=== PATIENT | male | born 1950 | race Caucasian/White ===

== ENCOUNTER 2017-05-10 09:52 | Outpatient (CLI) | payer MEDICARE, BC ==
[~2017-05-10 09:52] MED LIST: Iopamidol 370 76% 100 ML VIAL ONE
--- NOTE | 2017-05-10 15:23 | CT ---
CT ABDOMEN WITH CONTRAST CT PELVIS WITH CONTRAST: DATE: 05/10/17 HISTORY: 66-year-old male with Abdominal lymphoma, please compare with last study of July 2015. 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 787.01, nausea with vomiting. COMPARISON: 09/06/16 and 03/01/16. TECHNIQUE: IV injection of iodinated contrast media: 70 mL Isovue 370. Oral contrast media: Readi-Cat. FINDINGS: Again noted is the diffuse retroperitoneal, soft tissue attenuation material with shaggy borders, env eloping the bilateral renal arteries and renal veins, much of the abdominal aorta, and the inferior v tanisha cava, extending from the level of the celiac axis to the proximal portions of bilateral common il iac vessels, just distal to the aortic bifurcation. The oblique transverse and anteroposterior dimens ions measured at the level of the renal vessels, are approximately 9 x 3.5 cm (it is not possible to be precise because of the shaggy, ill-defined borders). When the same cursor placement is used on the previous CT images of 09/06/16 and 03/01/16 are used, the mass has not changed. There are at least two cysts in the left kidney. There is no hydronephrosis bilaterally. The pancreas , adrenals, spleen, liver, appendix, and urinary bladder are normal. There is no evidence of new lymp hadenopathy. There is no free fluid within the abdominal cavity or pelvic cavity. No signs of acute c olonic diverticulitis. Colonic interposition anterior to the right lobe of the liver. Multiple divert icula in the ascending colon, an atypical location. Calcified right hilar lymph node. Calcified pulm onary granuloma in right lower lobe. No infiltrate or pleural effusion. No interval change overall. IMPRESSION: 1. Extensively matted soft tissue density material throughout the retroperitoneum, encasing major bl ood vessels, represents sequelae of previously treated lymphoma. 2. No interval change compared to 09/06/16 and 03/01/16. No evidence of active lymphoma. JNR POS: [facility]
== END 2017-05-10 09:53 | disposition home or self-care (01) ==
LOC: CT 09:52
PROVIDERS: ATTEND Internal Medicine Medical Oncology
DX: C85.88 Other specified types of non-Hodgkin lymphoma, lymph nodes of multiple sites (principal); D50.9 Iron deficiency anemia, unspecified; R11.2 Nausea with vomiting, unspecified; Z23 Encounter for immunization
CPT/HCPCS: 74177

== ENCOUNTER 2018-02-23 06:36 | Outpatient (CLI) | payer MEDICARE, BC | END 2018-02-23 06:37 | disposition home or self-care (01) | LOC: BICULT 06:36 | PROVIDERS: ATTEND Internal Medicine Medical Oncology | DX: C85.90 Non-Hodgkin lymphoma, unspecified, unspecified site (principal); N28.1 Cyst of kidney, acquired; I71.4 Abdominal aortic aneurysm, without rupture; R59.0 Localized enlarged lymph nodes | CPT/HCPCS: 76700; 76856 ==

== ENCOUNTER 2018-07-25 07:22 | Outpatient (CLI) | payer MEDICARE, BC ==
--- NOTE | 2018-07-25 08:54 | CT ---
CT ABDOMEN AND PELVIS WITH IV CONTRAST: 07/25/2018 PROVIDED CLINICAL HISTORY: Abdominal pain. History of lymphoma. COMPARISON: 05/10/2017 FINDINGS: The visualized lung bases are free of significant opacity. The liver, spleen, pancreas, kidneys, and adrenal glands demonstrate a stable CT appearance. Extensive, confluent, abnormal soft tissue density throughout the retroperitoneum is redemonstrated. There has been no significant interval change, with respect to the prior examination. There is no bowel dilatation, inflammatory fat stranding, or lymph node enlargement apparent. Vascular calcifications are noted involving the abdominal aorta. The osseous structures demonstrate no concerning osteoblastic or osteolytic lesions. IMPRESSION: Stable examination. POS: [facility]
[2018-07-25] MEDS ORDERED: ISOVUE-370 76%-LOCM 1 ML ONE (09:27)
== END 2018-07-25 07:23 | disposition home or self-care (01) ==
LOC: BICCT 07:22
PROVIDERS: ATTEND Internal Medicine Nephrology
DX: N18.2 Chronic kidney disease, stage 2 (mild) (principal); N40.1 Benign prostatic hyperplasia with lower urinary tract symptoms; C85.93 Non-Hodgkin lymphoma, unspecified, intra-abdominal lymph nodes; N13.9 Obstructive and reflux uropathy, unspecified; E78.5 Hyperlipidemia, unspecified; M10.9 Gout, unspecified; I25.10 Atherosclerotic heart disease of native coronary artery without angina pectoris; M19.90 Unspecified osteoarthritis, unspecified site; K21.9 Gastro-esophageal reflux disease without esophagitis
CPT/HCPCS: 74177; 82565; Q9966

== ENCOUNTER 2019-04-26 07:49 | Outpatient (CLI) | payer MEDICARE, BC ==
--- NOTE | 2019-04-26 10:54 | CT ---
CT ABDOMEN AND PELVIS WITH IV CONTRAST: Date: 04/26/19 HISTORY: Retroperitoneal mass, lymphoma. COMPARISON: 07/25/18 and 05/10/17. FINDINGS: Calcified granuloma are seen at the right lung base with calcified right hilar lymph nodes again pres ent. Vascular calcifications are again seen in the coronary arteries, as well as involving the abdominal a angel and iliac arteries. There is persistent extensive and confluent abnormal soft tissue density seen throughout the retroper itoneum surrounding the abdominal aorta and IVC, as well as portions of the renal veins, greater on t he right. There has been no significant interval change with respect to the most recent study on 07/14 08/01. The liver, spleen, pancreas, bilateral adrenal glands, and opacified small bowel demonstrate a normal CT appearance. There is colonic diverticulosis present. The urinary bladder is decompressed, but otherwise grossly demonstrates a normal CT appearance. There is mild prominence of the left gonadal vein compared to the right with serpiginous enhancing ve ssels seen in the region of the left inguinal canal. This is a stable finding compared to prior exams . Degenerative changes are again seen in the spine, greatest at lumbosacral junction. No concerning scl erotic or lytic osseous lesions are identified. There are stable hypodense left renal lesions again seen, likely related to renal cysts. IMPRESSION: Overall stable CT scan of the abdomen and pelvis with the extensive retroperitoneal soft tissue densi ty unchanged compared to prior studies. POS: [facility]
[2019-04-26] MEDS ORDERED: Iopamidol-370 76% 500 ML 1 ML ONE (15:06)
== END 2019-04-26 07:50 | disposition home or self-care (01) ==
LOC: BICCT 07:49
PROVIDERS: ATTEND Internal Medicine Medical Oncology
DX: K66.8 Other specified disorders of peritoneum (principal)
CPT/HCPCS: 74177; Q9967

== ENCOUNTER 2020-09-17 07:56 | Outpatient (CLI) | payer MEDICARE, BC ==
[2020-09-17] MEDS ORDERED: Iopamidol-370 76% 500 ML 1 ML ONE (12:06)
== END 2020-09-17 07:57 | disposition home or self-care (01) ==
LOC: BICCT 07:56
PROVIDERS: ATTEND Internal Medicine Medical Oncology
DX: C82.38 Follicular lymphoma grade IIIa, lymph nodes of multiple sites (principal); N13.5 Crossing vessel and stricture of ureter without hydronephrosis
CPT/HCPCS: 74177; 82565; Q9967

== ENCOUNTER 2021-03-25 06:56 | Outpatient (CLI) | payer MEDICARE, BC | END 2021-03-25 06:57 | disposition home or self-care (01) | LOC: BICMRI 06:56 | PROVIDERS: ATTEND Chiropractor | DX: M47.26 Other spondylosis with radiculopathy, lumbar region (principal); M50.122 Cervical disc disorder at C5-C6 level with radiculopathy; M99.03 Segmental and somatic dysfunction of lumbar region | CPT/HCPCS: 72148 ==

== ENCOUNTER 2021-07-10 08:18 | Outpatient (CLI) | payer MEDICARE, BC | END 2021-07-10 08:19 | disposition home or self-care (01) | LOC: TBSIIMAG 08:18 | PROVIDERS: ATTEND Neurological Surgery | DX: R29.898 Other symptoms and signs involving the musculoskeletal system (principal); M50.021 Cervical disc disorder at C4-C5 level with myelopathy; M47.12 Other spondylosis with myelopathy, cervical region | CPT/HCPCS: 72141; 72146 ==

== ENCOUNTER 2021-07-21 13:16 | Outpatient (CLI) | payer MEDICARE, BC ==
[2021-07-21 14:30] LABS: Hemoglobin 11.1 g/dL (13.5-17.5); Mean Corpuscular HGB CONC 34.7 g/dL (32.0-36.0); Mean Corpuscular Hemoglobin 31.2 pg (27.0-33.0); Mean Corpuscular Volume 89.9 fl (81.2-95.1); Mean Platelet Volume 9.7 fl (7.4-10.4); Platelet Count 378 10x3/uL (150-450); RBC Distribution Width 12.2 % (11.5-14.5); Red Blood Cell (RBC) Count 3.56 10x6/uL (4.32-5.72); White Blood Cell (WBC) Count 8.8 10x3/uL (3.5-10.5)
[2021-07-21 14:56] LABS: Anion Gap 16 mmol/L (10-20); BUN (Urea Nitrogen) 14 mg/dL (8.4-25.7); Calc. Creatinine Clearance 0 mL/min (70-130); Calcium 9.7 mg/dL (7.8-10.44); Carbon Dioxide 23 mmol/L (23-31); Chloride 94 mmol/L (98-107); Glucose 125 mg/dL (83-110); Potassium 4.1 mmol/L (3.5-5.1); Sodium 129 mmol/L (136-145)
[2021-07-22 00:03] LABS: SARS-CoV-2 PCR by NAA Not Detected (NotDetected)
== END 2021-07-21 13:17 | disposition home or self-care (01) ==
LOC: LABBT 13:16
PROVIDERS: ATTEND Neurological Surgery
DX: Z01.818 Encounter for other preprocedural examination (principal); G95.9 Disease of spinal cord, unspecified; Z20.822 Contact with and (suspected) exposure to COVID-19
CPT/HCPCS: 80048; 85027; 93005; U0003; U0005; 93010

== ENCOUNTER 2021-07-24 06:39 | Day surgery (SDC) | payer MEDICARE, BC ==
[2021-07-21 13:43] VITALS: BMI 24.3
[2021-07-24] MEDS ORDERED: ceFAZolin Sodium (SDC) 2 GM/100 ML BAG ONE (10:02)
[2021-07-24] MEDS ORDERED: Dexmedetomidine 200 MCG/2 ML VIAL ONE (10:05)
[2021-07-24] MEDS ORDERED: Fentanyl 250 MCG/5 ML VIAL ONE ×2 (10:05→11:47)
[2021-07-24] MEDS ORDERED: Glycopyrrolate 0.2 MG/ML 5 ML SYRINGE ONE (10:21)
[2021-07-24] MEDS ORDERED: Lidocaine 1% PF 5 ML VIAL ONE (10:21)
[2021-07-24] MEDS ORDERED: Ondansetron PF 4 MG/2 ML Vial ONE (10:21)
[2021-07-24] MEDS ORDERED: ePHEDrine 50 MG/ML VIAL ONE (10:21)
[2021-07-24] MEDS ORDERED: Rocuronium Bromide 10 MG/ML (10ML VIAL) ONE (10:21)
[2021-07-24] MEDS ORDERED: PROPOFOL 200 MG/20 ML VIAL ONE (10:21)
[2021-07-24] MEDS ORDERED: Dexamethasone 20 MG/5 ML VIAL ONE (10:21)
[2021-07-24] MEDS ORDERED: SUGAMMADEX SODIUM 200 MG/2 ML VIAL ONE (11:25)
[2021-07-24] MEDS ORDERED: Tamsulosin HCl 0.4 MG CAP ONE (12:14)
== END 2021-07-24 15:10 | disposition home or self-care (01) ==
LOC: SDC 06:39
PROVIDERS: ATTEND Neurological Surgery
PROC: 0RG10A0 Fusion of Cervical Vertebral Joint with Interbody Fusion Device, Anterior Approach, Anterior Column, Open Approach (ICD-10-PCS; principal; 2021-07-24)
DX: M47.12 Other spondylosis with myelopathy, cervical region (principal); M48.02 Spinal stenosis, cervical region; M48.062 Spinal stenosis, lumbar region with neurogenic claudication; I10 Essential (primary) hypertension; E78.5 Hyperlipidemia, unspecified; M10.9 Gout, unspecified; N40.1 Benign prostatic hyperplasia with lower urinary tract symptoms; R33.8 Other retention of urine; Z79.82 Long term (current) use of aspirin; Z79.899 Other long term (current) drug therapy
CPT/HCPCS: 20930; 20936; 22551; 22845; 22853; 76000; C1713; C1776 ×2; J0690; J1100; J2405; J2704; J3010; J3490

== ENCOUNTER 2021-10-02 10:06 | Outpatient (CLI) | payer MEDICARE, BC ==
[2021-10-02 11:14] LABS: Hemoglobin 11.8 g/dL (13.5-17.5); Mean Corpuscular HGB CONC 33.7 g/dL (32.0-36.0); Mean Corpuscular Hemoglobin 30.8 pg (27.0-33.0); Mean Corpuscular Volume 91.4 fl (81.2-95.1); Mean Platelet Volume 9.8 fl (7.4-10.4); Platelet Count 309 10x3/uL (150-450); RBC Distribution Width 13.9 % (11.5-14.5); Red Blood Cell (RBC) Count 3.83 10x6/uL (4.32-5.72); White Blood Cell (WBC) Count 6.9 10x3/uL (3.5-10.5)
[2021-10-02 20:01] LABS: SARS-CoV-2 PCR by NAA Not Detected (NotDetected)
== END 2021-10-02 10:07 | disposition home or self-care (01) ==
LOC: LABBT 10:06
PROVIDERS: ATTEND Neurological Surgery
DX: Z01.812 Encounter for preprocedural laboratory examination (principal); M54.16 Radiculopathy, lumbar region; Z20.822 Contact with and (suspected) exposure to COVID-19
CPT/HCPCS: 85027; U0003; U0005

== ENCOUNTER 2021-10-07 05:25 | Day surgery (SDC) | payer MEDICARE, BC ==
[2021-10-05 10:25] VITALS: BMI 24.3
[2021-10-07] MEDS ORDERED: Bupivacaine PF 0.5% 30 ML VIAL ONE (06:10)
[2021-10-07] MEDS ORDERED: Thrombin 5000 UNITS/5 ML VIAL ONE (06:10)
[2021-10-07] MEDS ORDERED: EPINEPHrine 1 MG/ML AMP ONE (06:10)
[2021-10-07] MEDS ORDERED: Fentanyl 250 MCG/5 ML VIAL ONE (06:36)
[2021-10-07] MEDS ORDERED: ceFAZolin (BATCH) 2 GM/100 ML BAG ONE ×2 (07:00→10:53)
[2021-10-07] MEDS ORDERED: ePHEDrine 50 MG/ML VIAL ONE (07:12)
[2021-10-07] MEDS ORDERED: Rocuronium Bromide 10 MG/ML (10ML VIAL) ONE (07:12)
[2021-10-07] MEDS ORDERED: Dexamethasone 20 MG/5 ML VIAL ONE (07:12)
[2021-10-07] MEDS ORDERED: Ondansetron PF 4 MG/2 ML Vial ONE (07:12)
[2021-10-07] MEDS ORDERED: Lidocaine 1% PF 5 ML VIAL ONE (07:12)
[2021-10-07] MEDS ORDERED: PROPOFOL 200 MG/20 ML VIAL ONE (07:12)
[2021-10-07] MEDS ORDERED: SUGAMMADEX SODIUM 200 MG/2 ML VIAL ONE (08:07)
== END 2021-10-07 11:22 | disposition home or self-care (01) ==
LOC: SDC 05:25
PROVIDERS: ATTEND Neurological Surgery
PROC: 0SB20ZZ Excision of Lumbar Vertebral Disc, Open Approach (ICD-10-PCS; principal; 2021-10-07)
PROC: 01NB0ZZ Release Lumbar Nerve, Open Approach (ICD-10-PCS; 2021-10-07)
DX: M51.16 Intervertebral disc disorders with radiculopathy, lumbar region (principal); I10 Essential (primary) hypertension; E78.5 Hyperlipidemia, unspecified; M10.9 Gout, unspecified; N40.0 Benign prostatic hyperplasia without lower urinary tract symptoms; Z79.82 Long term (current) use of aspirin; Z79.899 Other long term (current) drug therapy; Z98.1 Arthrodesis status
CPT/HCPCS: 76000; J0171; J0690; J1100; J2405; J2704; J3010; J3490; S0020

== ENCOUNTER 2021-11-25 09:03 | Outpatient (CLI) | payer MEDICARE, BC | END 2021-11-25 09:04 | disposition home or self-care (01) | LOC: TBSIIMAG 09:03 | PROVIDERS: ATTEND Neurological Surgery | DX: M47.26 Other spondylosis with radiculopathy, lumbar region (principal); M47.815 Spondylosis without myelopathy or radiculopathy, thoracolumbar region; M47.817 Spondylosis without myelopathy or radiculopathy, lumbosacral region; M48.061 Spinal stenosis, lumbar region without neurogenic claudication | CPT/HCPCS: 72158 ==

== ENCOUNTER 2021-12-29 07:59 | Outpatient (CLI) | payer MEDICARE, BC | END 2021-12-29 08:00 | disposition home or self-care (01) | LOC: LABBT 07:59 | PROVIDERS: ATTEND Neurological Surgery | DX: Z01.818 Encounter for other preprocedural examination (principal); M51.26 Other intervertebral disc displacement, lumbar region; Z20.822 Contact with and (suspected) exposure to COVID-19 | CPT/HCPCS: 87811; 93005; 93010 ==

== ENCOUNTER 2022-01-01 06:02 | Day surgery (SDC) | payer MEDICARE, BC ==
[2021-12-30 12:16] VITALS: BMI 25.1
[2022-01-01] MEDS ORDERED: Bupivacaine PF 0.5% 30 ML VIAL ONE (08:24)
[2022-01-01] MEDS ORDERED: Thrombin 5000 UNITS/5 ML VIAL ONE ×2 (08:24→09:36)
[2022-01-01] MEDS ORDERED: EPINEPHrine 1 MG/ML AMP ONE (08:24)
[2022-01-01] MEDS ORDERED: fentaNYL Citrate/PF 100 MCG/2 ML SYRINGE ONE (08:54)
[2022-01-01] MEDS ORDERED: ePHEDrine 50 MG/ML VIAL ONE (09:05)
[2022-01-01] MEDS ORDERED: Glycopyrrolate 0.2 MG/ML 5 ML SYRINGE ONE (09:05)
[2022-01-01] MEDS ORDERED: Phenylephrine 10 MG/ML VIAL ONE (09:05)
[2022-01-01] MEDS ORDERED: Rocuronium Bromide 10 MG/ML (10ML VIAL) ONE (09:05)
[2022-01-01] MEDS ORDERED: Lidocaine 1% PF 5 ML VIAL ONE (09:05)
[2022-01-01] MEDS ORDERED: PROPOFOL 200 MG/20 ML VIAL ONE (09:05)
[2022-01-01] MEDS ORDERED: Ondansetron PF 4 MG/2 ML Vial ONE (09:05)
[2022-01-01] MEDS ORDERED: Acetaminophen/Codeine 30-300mg Tablet ONE (12:15)
[2022-01-01] MEDS ORDERED: CEFAZOLIN 2 GM VIAL ONE (12:38)
[2022-01-01] MEDS ORDERED: Sodium Chloride 0.9% 100 ML ONE (12:38)
== END 2022-01-01 13:13 | disposition home or self-care (01) ==
LOC: SDC 06:02
PROVIDERS: ATTEND Neurological Surgery
PROC: 0SB20ZZ Excision of Lumbar Vertebral Disc, Open Approach (ICD-10-PCS; principal; 2022-01-01)
DX: M51.16 Intervertebral disc disorders with radiculopathy, lumbar region (principal); I10 Essential (primary) hypertension; E78.5 Hyperlipidemia, unspecified; M10.9 Gout, unspecified; N40.0 Benign prostatic hyperplasia without lower urinary tract symptoms; Z85.72 Personal history of non-Hodgkin lymphomas; Z79.82 Long term (current) use of aspirin; Z79.899 Other long term (current) drug therapy
CPT/HCPCS: 76000; J0171; J0690; J2370; J2405; J2704; J2710; J3490; S0020

== ENCOUNTER 2025-04-29 09:02 | Outpatient (CLI) | payer MEDICARE, BC | END 2025-04-29 09:03 | disposition home or self-care (01) | LOC: BICRAD 09:02 | PROVIDERS: ATTEND Orthopaedic Surgery | DX: M54.50 Low back pain, unspecified (principal); M47.816 Spondylosis without myelopathy or radiculopathy, lumbar region; Z98.1 Arthrodesis status | CPT/HCPCS: 72100 ==